=== PATIENT | male | born 1995 | race Two or more races ===

== ENCOUNTER 2023-05-21 11:31 | Emergency (ER) | payer OTHER ==
[~2023-05-21] VITALS: Ht 193 cm; Wt 112.2 kg
[2023-05-21 13:45] LABS: BASO # 0.1 10^3/uL (0.0-0.2); BASO % 0.6 % (0.0-1.0); EOS # 0.2 10^3/uL (0.0-0.5); EOS % 1.9 % (0.0-3.0); HEMOGLOBIN 15.1 g/dl (13.5-17.5); LYMPH # 2.6 10^3/uL (1.5-5.0); LYMPH % 32.6 % (24.0-44.0); MEAN CORPUSCULAR HEMOGLOBIN 28.7 pg (27.0-33.0); MEAN CORPUSCULAR HGB CONC 34.3 g/dl (32.0-36.5); MEAN CORPUSCULAR VOLUME 83.5 fl (80.0-96.0); MONO # 0.5 10^3/uL (0.0-0.8); MONO % 5.6 % (2.0-8.0); NEUTROPHILS # 4.7 10^3/uL (1.5-8.5); NEUTROPHILS % 58.9 % (36.0-66.0); PLATELET COUNT, AUTOMATED 268 10^3/uL (150-450); RED BLOOD COUNT 5.27 10^6/uL (4.30-6.10)
[2023-05-21 13:52] LABS: ERYTHROCYTE SEDIMENTATION RATE 2 mm/hr (0-15)
[2023-05-21 14:09] LABS: C REACTIVE PROTEIN QUANTITATIV < 0.40 MG/DL (<1.0)
[2023-05-21 14:10] LABS: BLOOD UREA NITROGEN 16 MG/DL (9-23); CALCIUM LEVEL 9.3 MG/DL (8.5-10.1); CARBON DIOXIDE LEVEL 26 MMOL/L (20-31); CHLORIDE LEVEL 108 MMOL/L (98-107); CREATININE FOR GFR 1.13 MG/DL (0.70-1.30); GLOMERULAR FILTRATION RATE > 60.0 (>60); GLUCOSE, FASTING 87 MG/DL (60-100); POTASSIUM SERUM 4.1 MMOL/L (3.5-5.1); SODIUM LEVEL 139 MMOL/L (136-145)
[2023-05-21] MEDS ORDERED: AUGMENTIN 875 MG TAB PO ONE ×2 (14:15→14:20)
[2023-05-21 14:22] LABS: PROCALCITONIN <0.04 ng/ml
[2023-05-21] MEDS ORDERED: AMOX875T2 PO (14:36)
[2023-05-21 15:15] VITALS: BP 125/72; TEMP 96.8; O2SAT 99
== END 2023-05-21 15:15 | disposition home or self-care (01) ==
LOC: M ED 11:31
DX: L02.211 Cutaneous abscess of abdominal wall (principal)